=== PATIENT | male | born 1995 ===

== ENCOUNTER 2018-01-15 23:40 | Emergency (ER) | payer OTHER ==
[~2018-01-15] VITALS: Ht 177.8 cm; Wt 65.0 kg
[2018-01-16 00:06] VITALS: BP 126/60; PULSE 74; RESP 20; TEMP 98.6; O2SAT 99
[2018-01-16] MEDS ORDERED: DICL75TA PO (00:18)
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
[2018-01-16] MEDS ORDERED: IBUPROFEN 600 MG TAB PO ONE (00:30)
== END 2018-01-16 00:46 | disposition home or self-care (01) ==
LOC: NEPD 23:40
DX: S80.02XA Contusion of left knee, initial encounter (principal); Z72.0 Tobacco use; V49.50XA Passenger injured in collision with unspecified motor vehicles in traffic accident, initial encounter
CPT/HCPCS: 99283